=== PATIENT | female | born 1955 | race Caucasian/White ===

== ENCOUNTER 2020-09-13 12:05 | Emergency (ER) | payer MEDICARE, MEDICAID ==
[2020-09-13 12:50] LABS: BILIRUBIN,URINE NEGATIVE (NEGATIVE); GLUCOSE, URINE (UA) NEGATIVE (NEGATIVE); KETONES,URINE (UA) NEGATIVE (NEGATIVE); LEUKOCYTE ESTERASE, URINE NEGATIVE (NEGATIVE); NITRITE,URINE NEGATIVE (NEGATIVE); OCCULT BLOOD,URINE NEGATIVE (NEGATIVE); PH,URINE 6.5 PH (5.0-7.5); PROTEIN,URINE TRACE mg/dL (NEGATIVE); UROBILINOGEN,URINE 0.2 (NORMAL) E.U./dL (NORMAL)
[2020-09-13 12:52] LABS: CLARITY,URINE CLEAR (CLEAR)
[2020-09-13] MEDS ORDERED: KETOROLAC 30 MG/ML VIAL IVP STA (13:06)
[2020-09-13] MEDS ORDERED: ONDANSETRON 4 MG/2 ML VIAL IVP STA (13:06)
[2020-09-13] MEDS ORDERED: MORPHINE 2 MG/ML CARPUJECT IVP STA (13:06)
--- NOTE | 2020-09-13 13:07 | ED Physician Documentation ---
PD HPI ABD PAIN - Stated complaint Stated Complaint: BACK PX - Chief complaint Chief Complaint: Abd Pain - History obtained from History obtained from: Patient - Additional information Additional information: 65-year-old woman with remote history of kidney stones, never required intervention, remote cholecystectomy, diabetes, COPD presents with right flank pain. She felt mildly a couple of days ago but awoke her at 3 AM and has been severe ever since. Its not associated with nausea, dysuria, hematuria, fevers. Review of Systems Ten Systems: 10 systems reviewed and negative Constitutional: denies: Fever, Chills, Sweats Respiratory: denies: Dyspnea, Cough GI: denies: Nausea, Vomiting, Constipation, Diarrhea : denies: Dysuria, Frequency PD PAST MEDICAL HISTORY - Past Medical History Past Medical History: Yes Cardiovascular: Congestive heart failure Respiratory: COPD Neuro: None Endocrine/Autoimmune: Type 2 diabetes - Past Surgical History Past Surgical History: Yes General: Cholecystectomy - Present Medications Home Medications: Ambulatory Orders Medication Instructions Recorded Confirmed oxyCODONE [Roxicodone] 5 mg PO Q4-6H PRN #15 tablet 09/13/20 - Allergies Allergies/Adverse Reactions: Allergies Allergy/AdvReac Type Severity Reaction Status Date / Time codeine Allergy Hives Verified 09/13/20 12:24 cortisone Allergy Hives Verified 09/13/20 12:24 hydromorphone [From Dilaudid] Allergy Hives Verified 09/13/20 12:23 - Social History Does the pt smoke?: Yes Smoking Status: Current every day smoker Does the pt drink ETOH?: No Does the pt have substance abuse?: No - Immunizations Immunizations are current?: Yes - POLST Patient has POLST: No PD ED PE NORMAL - Vitals Vital signs reviewed: Yes - General General: Alert and oriented X 3 (Appears uncomfortable) - Cardiac Cardiac: RRR, No murmur - Respiratory Respiratory: No respiratory distress, Clear bilaterally - Abdomen Abdomen: Soft, Non tender - Back Back: No CVA TTP - Derm Derm: Normal color, Warm and dry - Extremities Extremities: No edema, No calf tenderness / cord - Neuro Neuro: Alert and oriented X 3, Normal speech Results - Vitals Vitals: Vital Signs - 24 hr 09/13/20 09/13/20 09/13/20 12:21 12:40 14:14 Temperature 36.5 C Heart Rate 87 91 84 Respiratory 20 22 22 Rate Blood Pressure 173/161 H 106/83 H 173/106 H O2 Saturation 100 99 97 Oxygen O2 Source Room air - Labs Labs: Laboratory Tests 09/13/20 09/13/20 09/13/20 12:44 13:57 13:57 WBC 4.7 L RBC 4.43 Hgb 12.9 Hct 39.9 MCV 90.1 MCH 29.1 MCHC 32.3 RDW 14.0 Plt Count 160 MPV 10.5 Neut # (Auto) 2.5 Lymph # (Auto) 1.6 Murray # (Auto) 0.5 Eos # (Auto) 0.0 Baso # (Auto) 0.1 Absolute Nucleated RBC 0.00 Nucleated RBC % 0.0 Sodium 139 Potassium 3.9 Chloride 103 Carbon Dioxide 25 Anion Gap 11.0 BUN 26 H Creatinine 1.1 H Estimated GFR (MDRD) 50 L Glucose 113 H Calcium 9.0 Total Bilirubin 0.9 AST 52 H ALT 45 Alkaline Phosphatase 81 Total Protein 8.0 Albumin 4.1 Globulin 3.9 Albumin/Globulin Ratio 1.1 Lipase 28 Urine Color YELLOW Urine Clarity CLEAR Urine pH 6.5 Ur Specific Sparks 1.015 Urine Protein TRACE Urine Glucose (UA) NEGATIVE Urine Ketones NEGATIVE Urine Occult Blood NEGATIVE Urine Nitrite NEGATIVE Urine Bilirubin NEGATIVE Urine Urobilinogen 0.2 (NORMAL) Ur Leukocyte Esterase NEGATIVE Ur Microscopic Review NOT INDICATED Urine Culture Comments NOT INDICATED - Rads (name of study) CT [facility] Radiology: EMP read contemporaneously (Nodular appearing liver consistent with cirrhosis, small amount of ascites and diverticulosis without diverticulitis.) Procedures - General procedure General procedure: She was difficult for IV access, multiple nurses had tried and failed. I personally placed a long 22-gauge IV in the right deep brachial vein after ChloraPrep using real-time ultrasound guidance and graham blood and flushed well. PD MEDICAL DECISION MAKING - ED course ED course: 65-year-old woman presents with right flank pain progressive and acutely worse this morning consistent with prior renal colic. That said CT and urinalysis are without evidence of ureterolith. She was difficult for IV access but eventually I was able to place one, and after some medication she was pain-free. We discussed the results of her CT scan. She states she does not drink alcohol basically at all. Close primary care follow-up was advised. Departure - Departure Disposition: 01 Home, Self Care Clinical Impression: Right flank pain Cirrhosis Qualifiers: Hepatic cirrhosis type: unspecified hepatic cirrhosis Ascites presence: with ascites Qualified Code(s): K74.60 - Unspecified cirrhosis of liver; R18.8 - Other ascites Condition: Good Record reviewed to determine appropriate education?: Yes Instructions: ED Cirrhosis Liver Follow-Up: [facility] [Provider Group] Prescriptions: oxyCODONE [Roxicodone] 5 mg PO Q4-6H PRN #15 tablet PRN Reason: Pain Comments: As discussed, there is no evidence of kidney stone, but your liver looks chronically inflamed on the CAT scan and your labs. It is imperative to avoid alcohol as you are already doing and follow-up with your primary care physician. A clinic that is taking new patients is listed on this form that you could call on Tuesday for an appointment. Do not drink or drive while taking prescription pain medications. In fact do not drink at all given what we discussed with your liver. Return for new or wor sening symptoms.
--- OUTSIDE RECORDS SUMMARY | 2020-09-13 13:18 | EXTERNAL MEDICAL SUMMARY RPT | Continuity of Care Document ---
:1955 Demographics Phone Unavailable Preferred Language Botswanan Marital Status Unknown Rastafarian Affiliation Unknown Race Unknown Ethnic Group Unknown Author Organization [facility] Address [address] [phone] Phone Care Team Providers Name Role Phone Laursen Unavailable Unavailable Problems date description facility 20200813 Heart failure, unspecified [facility] Medications date description facility 20200813 Insulin Glargine 100 UNT/ML Injectable Solution [facility] [Lantus] 20200815 Furosemide 20 MG Oral Tablet [facility] 20200815 Lisinopril 20 MG Oral Tablet [facility] 20200815 Albuterol 0.83 MG/ML Inhalant Solution [facility] 20200815 24 HR metoprolol succinate 25 MG Extend ed Release [facility] Tablet Procedures date description facility 20200813 Diagnosis [facility] date description facility 20200813 Finding [facility] date description facility 20200813 General Physician [facility] Vital Signs date measurement value source 20200813 BMI 30.9 kg/m2 20200813 BP_diastolic 96 mm[Hg] 20200813 BP_systolic 157 mm[Hg] 20200813 heart_rate 74 /min 20200813 height_metric 162.56 cm 20200813 height_standard 64 in 20200813 respiration_rate 29 /min 20200813 temperature_metric 36.78 C 20200813 temperature_standard 98.2 F 20200813 weight_metric 81.64 kg 20200813 weight_standard 179.99 lb date measurement value source 20200815 BP_diastolic 86 mm[Hg] 20200815 BP_systolic 159 mm[Hg] 20200815 heart_rate 81 /min 20200815 respiration_rate 20 /min 20200815 temperature_metric 36.89 C 20200815 temperature_standard 98.4 F Social History date description facility [id number]
--- NOTE | 2020-09-13 14:00 | CT Report ---
PROCEDURE: Abdomen/Pelvis WO INDICATIONS: R flank pain TECHNIQUE: Noncontrast 5 mm thick sections acquired from the diaphragms to the symphysis. 5 mm coronal and sagi ttal reformats were then performed. For radiation dose reduction, the following was used: automated exposure control, adjustment of mA and/or kV according to patient size. COMPARISON: None. FINDINGS: Image quality: Excellent. ABDOMEN: Lung bases: Lung bases are clear. Heart size is normal. A small hiatal hernia is incidentally note d. Solid organs: Liver demonstrates normal overall size. The liver demonstrates a nodular contour. The s pleen is within normal limits for size, without focal abnormalities. Gallbladder has been removed Pa ncreas is normal in contours. No adrenal nodules. Kidneys are normal in size, without hydronephrosis or nephrolithiasis. There is a fat-containing lef t renal lesion anteriorly that measures 2.4 cm. Peritoneum and bowel: Unenhanced bowel loops demonstrate normal wall thickness and caliber. No free air. Distal colonic diverticulosis is seen. No free air or loculated fluid collection can be seen. There is a mild amount of ascites seen. Nodes and vessels: No retroperitoneal or mesenteric adenopathy by size criteria. Aorta and inferior vena cava are normal in caliber. Miscellaneous: No ventral hernias. PELVIS: Genitourinary: Bladder wall thickness is normal. The uterus demonstrates an unremarkable appearance for age. No adnexal masses are seen. Miscellaneous: No inguinal hernias or adenopathy. Bones: No suspicious bony lesions. No vertebral body compression fractures. IMPRESSION: Abnormal appearing liver, with a nodular contour, which is consistent with cirrhosis. A mild amount of ascites is seen. Distal colonic diverticulosis is seen, without drew active diverticulitis. 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
[2020-09-13 14:06] LABS: BASOPHILS # (AUTO) 0.1 10^3/uL (0.0-0.1); BASOPHILS % (AUTO) 1.3 %; EOSINOPHILS % (AUTO) 0.6 %; HCT - HEMATOCRIT 39.9 % (37.0-47.0); HGB - HEMOGLOBIN 12.9 g/dL (12.0-16.0); LYMPHOCYTES # (AUTO) 1.6 10^3/uL (1.5-3.5); LYMPHOCYTES % (AUTO) 34.8 %; MEAN CORPUSCULAR HEMOGLOBIN 29.1 pg (27.0-31.0); MEAN CORPUSCULAR HGB CONC 32.3 g/dL (32.0-36.0); MEAN CORPUSCULAR VOLUME 90.1 fL (81.0-99.0); MEAN PLATELET VOLUME 10.5 fL (7.9-10.8); MONOCYTES # (AUTO) 0.5 10^3/uL (0.0-1.0); NEUTROPHILS # (AUTO) 2.5 10^3/uL (1.5-6.6); NEUTROPHILS % (AUTO) 52.1 %; PLT - PLATELET COUNT 160 10^3/uL (130-450); RED BLOOD COUNT 4.43 10^6/uL (4.20-5.40); WHITE BLOOD COUNT 4.7 x10^3/uL (4.8-10.8)
[2020-09-13 14:19] LABS: ALBUMIN 4.1 g/dL (3.2-5.5); ALBUMIN/GLOBULIN RATIO 1.1 (1.0-2.2); BILIRUBIN,TOTAL 0.9 mg/dL (0.2-1.0); CREATININE 1.1 mg/dL (0.4-1.0); POTASSIUM 3.9 mmol/L (3.5-5.0)
[2020-09-13 15:30] VITALS: BP 156/105
== END 2020-09-13 16:25 | disposition home or self-care (01) ==
LOC: ED 12:05
DX: R10.9 Unspecified abdominal pain (principal); K74.60 Unspecified cirrhosis of liver; R18.8 Other ascites; K57.30 Diverticulosis of large intestine without perforation or abscess without bleeding; Z87.442 Personal history of urinary calculi; Z90.49 Acquired absence of other specified parts of digestive tract; E11.9 Type 2 diabetes mellitus without complications; J44.9 Chronic obstructive pulmonary disease, unspecified; F17.200 Nicotine dependence, unspecified, uncomplicated
CPT/HCPCS: 36415; 80053; 81001; 81003; 83690; 85025; 87086; 96374; 96375; 99283

== ENCOUNTER 2021-07-27 08:29 | Emergency (ER) | payer MEDICARE, MEDICAID ==
[2021-07-27] MEDS ORDERED: IPRATROPIUM/ALBUTEROL 3 ML NEB INH STA (08:49)
[2021-07-27] MEDS ORDERED: predniSONE 20 MG TABLET PO STA (08:50)
--- NOTE | 2021-07-27 09:06 | ED Physician Documentation ---
History of Present Illness - Stated complaint Stated Complaint: SOA/Med refill - Chief complaint Chief Complaint: Resp - History obtained from History obtained from: Patient - Additonal information Additional information: The patient comes to the emergency department with chief complaint of "I am short of breath and I am out of my medications". The patient states she was traveling in [place] recently and lost her medications while there. She has been out for about a week and states that she is on medication for diabetes, including Trulicity, as well as for COPD. She states she has felt short of breath and has not had her inhaler available. The patient does smoke. She denies any fevers or chills. No productive cough. No other complaints at this time. Review of Systems Ten Systems: 10 systems reviewed and negative Constitutional: reports: Reviewed and negative Eyes: reports: Reviewed and negative Ears: reports: Reviewed and negative Nose: reports: Reviewed and negative Throat: reports: Reviewed and negative Cardiac: reports: Reviewed and negative Respiratory: reports: Dyspnea, Cough (Dry), Wheezing GI: reports: Reviewed and negative : reports: Reviewed and negative Skin: reports: Reviewed and negative Musculoskeletal: reports: Reviewed and negative Neurologic: reports: Reviewed and negative Psychiatric: reports: Reviewed and negative Endocrine: reports: Reviewed and negative Immunocompromised: reports: Reviewed and negative PD PAST MEDICAL HISTORY - Past Medical History Cardiovascular: Congestive heart failure Respiratory: COPD Neuro: None Endocrine/Autoimmune: Type 2 diabetes - Past Surgical History Past Surgical History: Yes General: Cholecystectomy - Present Medications Home Medications: Ambulatory Orders Medication Instructions Recorded Confirmed Albuterol Sulf [Ventolin Hfa 1 - 2 puffs INH Q4HR PRN #1 inhaler 07/27/21 Inhaler] - Allergies Allergies/Adverse Reactions: Allergies Allergy/AdvReac Type Severity Reaction Status Date / Time codeine Allergy Hives Verified 07/27/21 08:35 cortisone Allergy Hives Verified 07/27/21 08:35 hydromorphone [From Dilaudid] Allergy Hives Verified 07/27/21 08:35 - Social History Does the pt smoke?: Yes Smoking Status: Current every day smoker Does the pt drink ETOH?: No Does the pt have substance abuse?: No - Immunizations Immunizations are current?: Yes - POLST Patient has POLST: No PD ED PE NORMAL - Vitals Vital signs reviewed: Yes - General General: Alert and oriented X 3, No acute distress, Well developed/nourished - HEENT HEENT: Atraumatic, PERRL, EOMI, Moist mucous membranes - Neck Neck: Supple, no meningeal sign - Cardiac Cardiac: RRR, No murmur, Strong equal pulses - Respiratory Respiratory: No respiratory distress, Other (Mild expiratory wheezes) - Abdomen Abdomen: Soft, Non tender, Non distended - Derm Derm: Normal color, Warm and dry, No rash - Extremities Extremities: No deformity, No edema - Neuro Neuro: Alert and oriented X 3 - Psych Psych: Normal mood, Normal affect Results - Vitals Vitals: Vital Signs - 24 hr 07/27/21 07/27/21 08:32 09:27 Temperature 35.9 C L Heart Rate 101 H 78 Respiratory 16 19 Rate Blood Pressure 181/108 H O2 Saturation 95 Oxygen O2 Source [place] PD MEDICAL DECISION MAKING - ED course Complexity details: considered differential, d/w patient ED course: The patient looked fairly good in the emergency department, but was given a DuoNeb in the emergency department. She initially said her prescriptions were from [facility] in [place] but then stated actually [facility]. There was no pharmacy record of any of her medications, and we did not have any record in our system. As such, I advised the patient that she will need to follow-up with her primary care physician to discuss getting back on her meds. Her blood sugar is 300 here. She has been given a DuoNeb and a dose of prednisone in the emergency department and will be given a prescription for her albuterol inhaler to have at home. I will not represcribe her Trulicity because I do not know what dose she was on, and the patient needs to be followed closely by her primary care physician to be sure she is on proper dosing for this. She does not have any evidence of a severe asthma exacerbation or of complications from her diabetes at this time. Departure - Departure Disposition: 01 Home, Self Care Clinical Impression: Moderate COPD (chronic obstructive pulmonary disease), Smoking Asthma Qualifiers: Asthma severity: mild Asthma persistence: intermittent Asthma complication type: with acute exacerbation Qualified Code(s): J45.21 - Mild intermittent asthma with (acute) exacerbation Condition: Stable Instructions: Asthma Dc, ED Smoking Cessation Prescriptions: Albuterol Sulf [Ventolin Hfa Inhaler] 1 - 2 puffs INH Q4HR PRN #1 inhaler PRN Reason: Shortness Of Air/Wheezing Comments: We have called the pharmacy is that you reported you gotten your medications from, and they do not have any record of your meds. It is unclear exactly how long it has been since she last had meds filled, but since there is no record, your medications cannot be represcribed from the ER at this time. You will need to call your primary doctor's office right away to ask them to refill these for you, and to set up an appointment for follow-up as soon as possible. Your blood sugar is high today, but there is no evidence of any dangerous complication of your diabetes. It is also very important that you work with your doctor on a plan to stop smoking, as this will continue to worsen with your breathing status. For now, a prescription for an albuterol inhaler will be given to you.
[2021-07-27 09:59] VITALS: BP 172/115
== END 2021-07-27 10:00 | disposition home or self-care (01) ==
LOC: ED 08:29
DX: J44.9 Chronic obstructive pulmonary disease, unspecified (principal); J45.21 Mild intermittent asthma with (acute) exacerbation; F17.200 Nicotine dependence, unspecified, uncomplicated; E11.65 Type 2 diabetes mellitus with hyperglycemia; Z79.899 Other long term (current) drug therapy
CPT/HCPCS: 94640; 99283; J7512

== ENCOUNTER 2023-05-17 10:04 | Emergency (ER) | payer MEDICARE, MEDICAID ==
[2023-05-17 11:50] LABS: BASOPHILS # (AUTO) 0.1 10^3/uL (0.0-0.1); BASOPHILS % (AUTO) 1.3 %; EOSINOPHILS # (AUTO) 0.1 10^3/uL (0.0-0.7); EOSINOPHILS % (AUTO) 1.6 %; HCT - HEMATOCRIT 37.7 % (37.0-47.0); HGB - HEMOGLOBIN 12.2 g/dL (12.0-16.0); LYMPHOCYTES # (AUTO) 1.6 10^3/uL (1.5-3.5); LYMPHOCYTES % (AUTO) 24.8 %; MEAN CORPUSCULAR HGB CONC 32.4 g/dL (32.0-36.0); MEAN CORPUSCULAR VOLUME 89.5 fL (81.0-99.0); MEAN PLATELET VOLUME 10.8 fL (7.9-10.8); MONOCYTES # (AUTO) 0.6 10^3/uL (0.0-1.0); MONOCYTES % (AUTO) 10.2 %; NEUTROPHILS # (AUTO) 3.9 10^3/uL (1.5-6.6); NEUTROPHILS % (AUTO) 61.8 %; PLT - PLATELET COUNT 171 10^3/uL (130-450); RED BLOOD COUNT 4.21 10^6/uL (4.20-5.40); WHITE BLOOD COUNT 6.3 x10^3/uL (4.8-10.8)
[2023-05-17 11:53] LABS: ALBUMIN 3.8 g/dL (3.2-5.5); ALBUMIN/GLOBULIN RATIO 1.1 (1.0-2.2); BILIRUBIN,TOTAL 0.6 mg/dL (0.2-1.0); CALCIUM 9.2 mg/dL (8.5-10.3); POTASSIUM 3.2 mmol/L (3.5-4.5); TOTAL PROTEIN 7.3 g/dL (6.4-8.9)
[2023-05-17] MEDS ORDERED: FUROSEMIDE 20 MG TABLET PO STA (12:26)
--- NOTE | 2023-05-17 12:32 | ED Physician Documentation ---
History of Present Illness - Stated complaint Stated Complaint: SWOLLEN FEET - Chief complaint Chief Complaint: Ext Problem - History obtained from History obtained from: Patient - Additonal information Additional information: The patient comes to the emergency department chief complaint of ongoing swelling in her lower extremities for the last month. The patient states that actually, she has had swelling in her lower extremities for much longer than that, but has been busy taking care of an ill brother who recently and subsequently, going through his thinks. She states that she has not really had much time to take care of herself. She finally went to the emergency department [facility] about a month ago and had labs and chest x-ray done and was told she was in some congestive heart failure. She was started on Lasix 10 mg daily and discharged. The patient does not have a primary care physician and 2 weeks later, went to the walk-in clinic where she saw one of the nurse practitioners. She went there because she continued to have swelling in her legs. The patient's Lasix dose was doubled on May 05 through the walk-in clinic and patient has been on 20 mg once daily since. She states it does not seem to have affected how much she is urinating or the amount of swelling in her lower extremities. She states she has a history of COPD and is chronically short of breath and does not feel more short of breath than usual. She is a smoker. She denies any chest pain. No cough or fevers. She states that she has not been wearing any pressure stockings or elevating her feet. She is on her feet a lot. She just states that her feet and legs are uncomfortable and do not seem to be getting better and she is wondering why. No other complaints at this time. PD PAST MEDICAL HISTORY - Past Medical History Past Medical History: Yes Cardiovascular: Congestive heart failure, High cholesterol Respiratory: COPD Neuro: None Endocrine/Autoimmune: Type 2 diabetes GI: None [employer] CUTTING: None : Kidney stones HEENT: None Musculoskeletal: None - Past Surgical History Past Surgical History: Yes General: Cholecystectomy - Present Medications Home Medications: Ambulatory Orders Medication Instructions Recorded Confirmed Albuterol Sulf [Ventolin Hfa 1 - 2 puffs INH Q4HR PRN #1 inhaler 07/27/21 05/17/23 Inhaler] Atorvastatin [Lipitor] 5 mg ORAL DAILY PM 05/17/23 05/17/23 Dulaglutide [Trulicity] 0.75 mg SQ Q7D 05/17/23 05/17/23 Furosemide [Lasix] 20 mg PO DAILY 05/17/23 05/17/23 Furosemide [Lasix] 60 mg PO DAILY #120 tablet 05/17/23 Lisinopril [Zestril] 20 mg PO DAILY 05/17/23 05/17/23 Metoprolol Succinate [Kapspargo 12.5 mg PO BID 05/17/23 05/17/23 Sprinkle] diltiaZEM CD [Cardizem Cd] 240 mg PO DAILY #60 cap 05/17/23 - Allergies Allergies/Adverse Reactions: Allergies Allergy/AdvReac Type Severity Reaction Status Date / Time codeine Allergy Hives Verified 05/17/23 10:25 cortisone Allergy Hives Verified 05/17/23 10:25 hydromorphone [From Dilaudid] Allergy Hives Verified 05/17/23 10:25 - Social History Does the pt smoke?: No Smoking Status: Former smoker Does the pt drink ETOH?: No Does the pt have substance abuse?: No - Immunizations Immunizations are current?: Yes - POLST Patient has POLST: No PD ED PE NORMAL - Vitals Vital signs reviewed: Yes - General General: Alert and oriented X 3, No acute distress, Well developed/nourished - HEENT HEENT: Atraumatic, PERRL, EOMI, Moist mucous membranes - Neck Neck: Supple, no meningeal sign - Cardiac Cardiac: RRR, No murmur - Respiratory Respiratory: No respiratory distress, Clear bilaterally, Other (Mildly decreased air movement bilateral lower lung clifford; mildly increased expiratory phase length.) - Abdomen Abdomen: Soft, Non tender, Non distended - Derm Derm: Normal color, Warm and dry, No rash - Extremities Extremities: No deformity, Other (2+ pitting edema bilateral lower extremities symmetrically.) - Neuro Neuro: Alert and oriented X 3 - Psych Psych: Normal mood, Normal affect Results - Vitals Vitals: Vital Signs - 24 hr 05/17/23 10:25 Temperature 36.1 C L Heart Rate 68 Respiratory 20 Rate Blood Pressure 190/100 H O2 Saturation 98 Oxygen O2 Source Room air - Labs Labs: Laboratory Tests 05/17/23 05/17/23 05/17/23 11:30 11:30 11:30 WBC 6.3 RBC 4.21 Hgb 12.2 Hct 37.7 MCV 89.5 MCH 29.0 MCHC 32.4 RDW 14.0 Plt Count 171 MPV 10.8 Neut # (Auto) 3.9 Lymph # (Auto) 1.6 Price # (Auto) 0.6 Eos # (Auto) 0.1 Baso # (Auto) 0.1 Absolute Nucleated RBC 0.00 Nucleated RBC % 0.0 Sodium 137 Potassium 3.2 L Chloride 101 Carbon Dioxide 27 Anion Gap 9.0 BUN 22 H Creatinine 1.0 Estimated GFR (MDRD) 55 L Glucose 191 H Calcium 9.2 Total Bilirubin 0.6 AST 48 H ALT 42 Alkaline Phosphatase 80 B-Natriuretic Peptide 2652 H Total Protein 7.3 Albumin 3.8 Globulin 3.5 Albumin/Globulin Ratio 1.1 Lipase 20 PD Medical Decision Making - ED course Complexity details: reviewed results, re-evaluated patient, considered differential, d/w patient ED course: The patient's laboratory studies were evaluated and the patient was found to have a BNP of 2600. Her kidney functions were normal. The patient's lungs were clear and she did not have any acute complaints of shortness of breath, and I did not feel that she was likely to be having an acute exacerbation of her congestive heart failure. I feel that most likely, she needs to be on a higher dose of Lasix and also, she is quite hypertensive here and would most likely benefit from getting her blood pressure down, as well. I gave the patient dose of Lasix 60 mg here. I will start her on the same dose of Lasix at home, as well as an antihypertensive. I have given her the name and follow-up information for Dr. Carney, who is the primary care ED follow-up physician on our list for this time period. We have discussed the usual indications for return. Departure - Departure Disposition: 01 Home, Self Care Clinical Impression: Lower extremity edema Congestive heart failure Qualifiers: Heart failure type: unspecified Heart failure chronicity: chronic Qualified Code(s): I50.9 - Heart failure, unspecified Hypertension Qualifiers: Hypertension type: unspecified Qualified Code(s): I10 - Essential (primary) hypertension Condition: Stable Instructions: ED CHF General, ED Hypertension New Begin Tx, ED Edema Legs Bilateral Follow-Up: Jonel Carney MD [Provider Admit Priv/Credential] - Prescriptions: diltiaZEM CD [Cardizem Cd] 240 mg PO DAILY #60 cap Furosemide [Lasix] 60 mg PO DAILY #120 tablet Comments: Your labs indicate that you have some degree of congestive heart failure and additionally, given that your swelling has not improved on 10 mg of Lasix daily nor yet 20 mg of Lasix daily, we will triple your dose to 60 mg of Lasix daily. Additionally, your blood pressure was quite high here and this is most likely contributing to your condition as well. As such, it is advisable for you to start a blood pressure medication as well while you are waiting evaluation by primary care provider. A prescription for both the furosemide and the blood pressure medication of been electronically transmitted to the [facility] pharmacy in [place]. Please pick these up and start the blood pressure medicine today. We have already given you a dose of Lasix here in the emergency department so you can start the Lasix/furosemide tomorrow at the new dose from your pharmacy supply. I have also written a prescription for prescription grade pressure stockings for you and you should wear these along with taking the medication. They are most effective if they wore worn [id number] And if you are able to elevate your legs whenever sitting or laying down. The primary care physician taking ER follow-up cases for this week is Dr. Jonel Carney. His follow-up information has been provided and you should contact the clinic this afternoon if possible to set up the soonest available appointment to see him and establish care.
[2023-05-17 12:54] VITALS: BP 151/105; O2SAT 94
== END 2023-05-17 12:52 | disposition home or self-care (01) ==
LOC: ED 10:04
DX: R60.0 Localized edema (principal); R03.0 Elevated blood-pressure reading, without diagnosis of hypertension; I50.9 Heart failure, unspecified; F17.200 Nicotine dependence, unspecified, uncomplicated
CPT/HCPCS: 36415; 80053; 83690; 83880; 85025; 99283; 99284; A9270